=== PATIENT | female | born 1995 | race Caucasian/White ===

== ENCOUNTER 2021-07-06 10:00 | Inpatient (IN) ==
[2021-07-06] MEDS ORDERED: Naloxone 0.4 MG/ML INJ IVP PRN (10:28)
[2021-07-06] MEDS ORDERED: Famotidine 20 MG/2 ML VIAL IVP PRN (10:28)
[2021-07-06] MEDS ORDERED: Metoclopramide 10 MG/2 ML VIAL IVP PRN (10:28)
[2021-07-06] MEDS ORDERED: *HR* Nalbuphine 10 MG/ML AMPUL IV PRN (10:28)
[2021-07-06] MEDS ORDERED: Ringers Solution, Lactated 1,000 ML IVC SCH (10:30)
[2021-07-06] MEDS ORDERED: Oxytocin 20 units/ LR 1000 mL 20 UNIT/1,000 ML BAG IVC SCH ×2 (10:30→19:45)
[2021-07-06] MEDS ORDERED: miSOPROStoL 25 MCG TABLET PO SCH (10:30)
[2021-07-06 11:01] LABS: Basophils % 0.3 %; Eosinophils % 0.4 %; Hematocrit 37.3 % (35.3-44.9); Hemoglobin 12.5 g/dL (11.5-15.4); Immature Granulocytes % 0.4 % (0-4); Lymphocytes # 1.9 K/mcL (0.6-4.6); Lymphocytes % 18.8 %; Mean Corpuscular HGB Conc 33.5 g/dL (31.6-35.5); Mean Corpuscular Hemoglobin 30.7 pg (28.0-33.3); Mean Corpuscular Volume 91.6 fL (83.0-100.0); Mean Platelet Volume 12.2 fL (9.4-12.4); Monocytes # 0.7 K/mcL (0.0-1.3); Monocytes % 6.8 %; Neutrophils # 7.4 K/mcL (1.6-8.9); Platelet Count 145 K/mcL (140-400); Red Blood Count 4.07 M/mcL (3.82-4.97); Red Cell Distribution Width 14.6 % (11.5-14.5); Segmented Neutrophils % 73.3 %; White Blood Count 10.1 K/mcL (4.3-11.1)
[2021-07-06 11:08] LABS: Amphetamine Screen,Urine Negative ng/mL (Cutoff=1000); Barbiturate Screen,Urine Negative ng/mL (Cutoff=200); Benzodiazepines Screen,Urine Negative ng/mL (Cutoff=200); Cannabinoid Screen,Urine Negative ng/mL (Cutoff = 50); Cocaine Screen,Urine Negative ng/mL (Cutoff= 300); Opiate Screen,Urine Negative ng/mL (Cutoff=300); Phencyclidine Screen,Urine Negative ng/mL (Cutoff=25)
[2021-07-06 11:32] LABS: Influenza A PCR Negative (Negative); Influenza B PCR Negative (Negative); Resp. Syncytial Virus PCR Negative (Negative)
[2021-07-06 11:42] LABS: SARS-CoV-2 by PCR (In House) Negative (Negative)
[2021-07-06] MEDS ORDERED: EPHEDrine 50 MG/ML VIAL IVP PRN (12:19)
[2021-07-06] MEDS ORDERED: Epidural Premix (fent/bupiv) 110 ML EP SCH (12:30)
[2021-07-07] MEDS ORDERED: Famotidine 20 MG/2 ML VIAL IVP ONE (11:39)
[2021-07-07] MEDS ORDERED: Ondansetron 4 MG/2 ML VIAL IVP ONE (11:42)
[2021-07-07] MEDS ORDERED: Famotidine 20 MG/2 ML VIAL ONE (11:45)
[2021-07-07] MEDS ORDERED: Ondansetron 4 MG/2 ML VIAL ONE ×2 (11:45→15:21)
[2021-07-07] MEDS ORDERED: Ropivacaine/PF 0.2% 20 ML VIAL ONE ×2 (16:53→22:18)
[2021-07-07] MEDS ORDERED: *HR* FentaNYL (PF) 100 MCG/2 ML VIAL ONE ×2 (16:53→22:18)
[2021-07-08] MEDS ORDERED: Acetaminophen 325 MG TABLET PO ONE (00:46)
[2021-07-08] MEDS ORDERED: Azithromycin 500 MG in 0.9 % Sodium Chloride 250 ML IVPB ONE (02:14)
[2021-07-08] MEDS ORDERED: Lidocaine/EPI 1:200k 2% PF 20 ML VIAL ONE (02:28)
[2021-07-08] MEDS ORDERED: *HR* FentaNYL (PF) 100 MCG/2 ML VIAL ONE ×2 (02:28→03:35)
[2021-07-08] MEDS ORDERED: Ondansetron 4 MG/2 ML VIAL ONE (02:28)
[2021-07-08] MEDS ORDERED: CeFAZolin 2,000 MG/120 ML BAG IVPB ONE (03:00)
[2021-07-08] MEDS ORDERED: Ringers Solution, Lactated 1,000 ML ONE ×2 (03:17→04:29)
[2021-07-08] MEDS ORDERED: *HR* Oxytocin 10 UNIT/ML VIAL ONE (03:18)
[2021-07-08] MEDS ORDERED: Acetaminophen IV 1,000 MG/100 ML BAG IVPB ONE (03:36)
[2021-07-08] MEDS ORDERED: *HR* Midazolam HCl 2 MG/2 ML VIAL ONE (03:37)
[2021-07-08] MEDS ORDERED: *HR* Morphine Sulfate/PF 10 MG/10 ML AMPUL ONE (03:42)
[2021-07-08] MEDS ORDERED: *HR* Promethazine 25 MG/ML VIAL ONE (03:47)
[2021-07-08] MEDS ORDERED: Ketorolac 30 MG/ML VIAL ONE (04:30)
[2021-07-08] MEDS ORDERED: Naloxone 0.4 MG/ML INJ IVP PRN ×2 (04:54→06:53)
[2021-07-08] MEDS ORDERED: *HR* OxyCODONE Immed Rel 5 MG TABLET PO PRN (04:54)
[2021-07-08] MEDS ORDERED: *HR* FentaNYL (PF) 100 MCG/2 ML VIAL IVP PRN (04:54)
[2021-07-08] MEDS ORDERED: Promethazine 6.25 MG in Water for inj. (sterile) 20 ML IVPB PRN (04:54)
[2021-07-08 05:03] LABS: Hemoglobin 7.3 g/dL (11.5-15.4)
[2021-07-08 05:04] LABS: Hematocrit 22.8 % (35.3-44.9)
[2021-07-08] MEDS ORDERED: Oxytocin 20 units/ LR 1000 mL 20 UNIT/1,000 ML BAG IVC SCH (06:53)
[2021-07-08] MEDS ORDERED: Ondansetron 4 MG/2 ML VIAL IVP PRN (06:53)
[2021-07-08] MEDS ORDERED: Metoclopramide 10 MG/2 ML VIAL IVP PRN (06:53)
[2021-07-08] MEDS: Prenatal Vit/FA 1 EACH TABLET PO SCH (08:17)
[2021-07-08] MEDS: 0.9 % Sodium Chloride 1,000 ML IVC SCH ×3 (08:18→23:46)
[2021-07-08 09:15] LABS: Hematocrit 23.2 % (35.3-44.9); Mean Corpuscular HGB Conc 34.1 g/dL (31.6-35.5); Mean Corpuscular Hemoglobin 31.7 pg (28.0-33.3); Mean Corpuscular Volume 93.2 fL (83.0-100.0); Mean Platelet Volume 12.2 fL (9.4-12.4); Platelet Count 116 K/mcL (140-400); Red Blood Count 2.49 M/mcL (3.82-4.97); Red Cell Distribution Width 14.8 % (11.5-14.5); White Blood Count 10.7 K/mcL (4.3-11.1)
[2021-07-08 09:21] LABS: Hemoglobin 7.9 g/dL (11.5-15.4)
[2021-07-08 09:56] LABS: Lymphocytes # 2.1 K/mcL (0.6-4.6); Monocytes # 0.6 K/mcL (0.0-1.3); Neutrophils # 7.7 K/mcL (1.6-8.9)
[2021-07-08 09:57] LABS: Platelet Estimate Slight Decrease (Normal); Toxic Granulation Present (Not Present)
[2021-07-08] MEDS: Acetaminophen 325 MG TABLET PO SCH ×2 (12:09→18:21)
[2021-07-08] MEDS: Ibuprofen 600 MG TABLET PO SCH ×2 (13:28→21:10)
[2021-07-08] MEDS: *HR* OxyCODONE Immed Rel 5 MG TABLET PO PRN (14:07)
[2021-07-08] MEDS ORDERED: Methylergonovine 0.2 MG/ML AMPUL IM ONE (15:08)
[2021-07-08] MEDS ORDERED: miSOPROStoL 100 MCG TABLET PO ONE (15:08)
[2021-07-08] MEDS ORDERED: *HR* Oxytocin 10 UNIT/ML VIAL IM ONE (15:08)
[2021-07-08] MEDS: CeFAZolin 2,000 MG/120 ML BAG IVPB SCH (17:01)
[2021-07-08] MEDS ORDERED: 0.9 % Sodium Chloride 500 ML IVC ONE (19:03)
[2021-07-08] MEDS: metroNIDAZOLE 500 MG TABLET PO SCH (21:10)
[2021-07-09] MEDS: Acetaminophen 325 MG TABLET PO SCH ×4 (00:18→20:30)
[2021-07-09] MEDS: CeFAZolin 2,000 MG/120 ML BAG IVPB SCH ×4 (00:20→23:39)
[2021-07-09] MEDS: Ibuprofen 600 MG TABLET PO SCH ×4 (03:21→23:39)
[2021-07-09] MEDS: Simethicone 80 MG TAB.CHEW PO PRN ×3 (03:21→16:05)
[2021-07-09] MEDS: *HR* OxyCODONE Immed Rel 5 MG TABLET PO PRN ×5 (03:22→23:38)
[2021-07-09 03:51] LABS: Basophils % 0.2 %; Eosinophils # 0.1 K/mcL (0.0-0.6); Eosinophils % 0.5 %; Hematocrit 19.9 % (35.3-44.9); Hemoglobin 6.4 g/dL (11.5-15.4); Immature Granulocytes % 0.9 % (0-4); Lymphocytes # 1.4 K/mcL (0.6-4.6); Lymphocytes % 10.8 %; Mean Corpuscular HGB Conc 32.2 g/dL (31.6-35.5); Mean Corpuscular Hemoglobin 30.6 pg (28.0-33.3); Mean Corpuscular Volume 95.2 fL (83.0-100.0); Monocytes # 0.6 K/mcL (0.0-1.3); Monocytes % 4.1 %; Neutrophils # 11.1 K/mcL (1.6-8.9); Platelet Count 115 K/mcL (140-400); Red Blood Count 2.09 M/mcL (3.82-4.97); Red Cell Distribution Width 14.9 % (11.5-14.5); Segmented Neutrophils % 83.5 %; White Blood Count 13.3 K/mcL (4.3-11.1)
[2021-07-09 05:38] LABS: Platelet Estimate Slight Decrease (Normal); Smudge Cells Present (Not Present); Toxic Granulation Present (Not Present)
[2021-07-09] MEDS: metroNIDAZOLE 500 MG TABLET PO SCH ×2 (08:14→20:31)
[2021-07-09] MEDS: Prenatal Vit/FA 1 EACH TABLET PO SCH (08:14)
[2021-07-09] MEDS: 0.9 % Sodium Chloride 1,000 ML IVC SCH (08:15)
[2021-07-09] MEDS ORDERED: 0.9 % Sodium Chloride 250 ML IVC SCH (10:15)
[2021-07-09 15:44] LABS: Basophils % 0.2 %; Mean Corpuscular Volume 93.4 fL (83.0-100.0)
[2021-07-09 15:46] LABS: Eosinophils # 0.1 K/mcL (0.0-0.6); Eosinophils % 0.7 %; Hematocrit 22.5 % (35.3-44.9); Hemoglobin 7.4 g/dL (11.5-15.4); Immature Granulocytes % 0.9 % (0-4); Lymphocytes # 1.5 K/mcL (0.6-4.6); Lymphocytes % 9.6 %; Mean Corpuscular HGB Conc 32.9 g/dL (31.6-35.5); Mean Corpuscular Hemoglobin 30.7 pg (28.0-33.3); Mean Platelet Volume 11.9 fL (9.4-12.4); Monocytes # 0.6 K/mcL (0.0-1.3); Monocytes % 3.6 %; Neutrophils # 13.1 K/mcL (1.6-8.9); Platelet Count 137 K/mcL (140-400); Red Blood Count 2.41 M/mcL (3.82-4.97); Red Cell Distribution Width 15.3 % (11.5-14.5); White Blood Count 15.4 K/mcL (4.3-11.1)
[2021-07-10] MEDS: *HR* OxyCODONE Immed Rel 5 MG TABLET PO PRN ×2 (03:43→10:20)
[2021-07-10] MEDS: Acetaminophen 325 MG TABLET PO SCH ×2 (03:43→10:20)
[2021-07-10 04:39] LABS: Basophils % 0.2 %; Eosinophils # 0.1 K/mcL (0.0-0.6); Eosinophils % 0.8 %; Hematocrit 21.4 % (35.3-44.9); Hemoglobin 7.4 g/dL (11.5-15.4); Immature Granulocytes % 1.9 % (0-4); Lymphocytes # 1.9 K/mcL (0.6-4.6); Lymphocytes % 12.3 %; Mean Corpuscular HGB Conc 34.6 g/dL (31.6-35.5); Mean Corpuscular Hemoglobin 31.9 pg (28.0-33.3); Mean Corpuscular Volume 92.2 fL (83.0-100.0); Mean Platelet Volume 12.1 fL (9.4-12.4); Monocytes # 0.5 K/mcL (0.0-1.3); Monocytes % 3.4 %; Neutrophils # 12.6 K/mcL (1.6-8.9); Platelet Count 150 K/mcL (140-400); Red Blood Count 2.32 M/mcL (3.82-4.97); Red Cell Distribution Width 15.9 % (11.5-14.5); Segmented Neutrophils % 81.4 %; White Blood Count 15.6 K/mcL (4.3-11.1)
[2021-07-10 04:41] VITALS: O2SAT 95
[2021-07-10 07:17] VITALS: BP 114/71; PULSE 100; TEMP 97.9
[2021-07-10] MEDS: Prenatal Vit/FA 1 EACH TABLET PO SCH (10:19)
[2021-07-10] MEDS: metroNIDAZOLE 500 MG TABLET PO SCH (10:19)
[2021-07-10] MEDS: Ibuprofen 600 MG TABLET PO SCH (10:20)
== END 2021-07-10 16:22 | disposition home or self-care (01) | DRG 788 ==
LOC: 1NENULAB 10:05 → 1NENUOBS 07-08 07:48
PROVIDERS: ADMIT Student in an Organized Health Care Education/Training Program; ATTEND Student in an Organized Health Care Education/Training Program